=== PATIENT | male | born 1970 | race Hispanic/Latino ===

== ENCOUNTER 2022-10-04 17:58 | Emergency (ER) | payer BC ==
[~2022-10-04] VITALS: Ht 177.8 cm; Wt 97.5 kg
[2022-10-04 20:35] LABS: BASOPHILS % (AUTO) 0.2 % (0.0-5.0); EOSINOPHILS % (AUTO) 1.5 % (0.0-8.0); HEMATOCRIT 45.8 % (42-54); LYMPHOCYTES % (AUTO) 2.7 % (21.0-51.0); MEAN CORPUSCULAR HEMOGLOBIN 31.1 pg (27.0-33.0); MEAN CORPUSCULAR HGB CONC 33.8 g/dL (32.0-36.0); MEAN CORPUSCULAR VOLUME 91.8 fL (79-99); MONOCYTES % (AUTO) 1.9 % (3.0-13.0); NEUTROPHILS % (AUTO) 93.5 % (40.0-77.0); PLATELET COUNT (AUTO) 213 K/uL (130-400); RED BLOOD CELL COUNT(AUTO) 4.99 MIL/uL (4.50-6.20); RED CELL DISTRIBUTION WIDTH 12.4 % (11.0-15.5); WHITE BLOOD COUNT (AUTO) 12.6 K/uL (4.8-10.8)
[2022-10-04 20:37] LABS: APPEARANCE,URINE CLEAR (CLEAR); BILIRUBIN,URINE NEGATIVE (NEGATIVE); COLOR,URINE LIGHT-YELLOW (YELLOW); GLUCOSE, URINE (UA) NEGATIVE (NEGATIVE); KETONES,URINE NEGATIVE (NEGATIVE); LEUKOCYTE ESTERASE ,URINE NEGATIVE Leu/uL (NEGATIVE); NITRATE,URINE NEGATIVE (NEGATIVE); OCCULT BLOOD,URINE NEGATIVE (NEGATIVE); PH,URINE 5.5 (5.0-8.0); PROTEIN,URINE NEGATIVE (NEGATIVE); UROBILINOGEN,URINE 0.2 mg/dL (0.2-1.0)
[2022-10-04 20:38] LABS: MUCUS,URINE RARE LPF (None Seen); RBC,URINE 0-1 /HPF (0-1); WBC,URINE 0-1 /HPF (0-1)
[2022-10-04 20:50] LABS: CREATININE 1.2 mg/dL (0.5-1.5); POTASSIUM 4.1 mmol/L (3.5-5.1)
[2022-10-04 20:55] LABS: ALBUMIN 4.3 g/dL (3.5-5.0); TOTAL PROTEIN, SERUM 8.1 g/dL (6.0-8.3)
[2022-10-04] MEDS ORDERED: MORPHINE 4 MG SYG IVP ONE (21:00)
[2022-10-04] MEDS ORDERED: PANTOPRAZOLE 40 MG/VIAL IVP ONE (21:00)
[2022-10-04] MEDS ORDERED: 0.9%NACL 1000ML 1,000 ML IV ONE (21:00)
[2022-10-04] MEDS ORDERED: ONDANSETRON 4MG INJ IVP ONE (21:00)
[2022-10-04 21:35] VITALS: BP 140/68
[2022-10-04] MEDS ORDERED: LACT20PA6 PO (21:44)
[2022-10-04] MEDS ORDERED: FAMO20TA8 PO (21:44)
== END 2022-10-04 22:12 | disposition home or self-care (01) ==
LOC: EDH 17:58
DX: K52.9 Noninfective gastroenteritis and colitis, unspecified (principal); K59.00 Constipation, unspecified; F41.9 Anxiety disorder, unspecified; F32.A Depression, unspecified; E78.00 Pure hypercholesterolemia, unspecified; Z79.899 Other long term (current) drug therapy
CPT/HCPCS: 99284; 74176; 96374; 96375; 96361; 84484; 80053; 83690; 85025; 81001; 36415; 93005; J7030; J2405; J2270; C9113

== ENCOUNTER 2024-04-10 10:53 | Emergency (ER) | payer SELFPAY ==
[~2024-04-10] VITALS: Ht 180.3 cm; Wt 99.3 kg
[~2024-04-10 10:53] MED LIST: FAMO20TA8 PO; LACT20PA6 PO
[2024-04-10] MEDS ORDERED: CEPH500B PO (11:45)
[2024-04-10 11:52] VITALS: BP 138/88; PULSE 86; RESP 16; TEMP 98; O2SAT 98
== END 2024-04-10 11:53 | disposition home or self-care (01) ==
LOC: EDH 10:53
DX: S01.112A Laceration without foreign body of left eyelid and periocular area, initial encounter (principal); E03.9 Hypothyroidism, unspecified; E11.9 Type 2 diabetes mellitus without complications; E78.00 Pure hypercholesterolemia, unspecified; I10 Essential (primary) hypertension; W25.XXXA Contact with sharp glass, initial encounter; Y93.89 Activity, other specified; Y92.89 Other specified places as the place of occurrence of the external cause; Y99.8 Other external cause status
CPT/HCPCS: 12013

== ENCOUNTER 2024-04-17 14:43 | Emergency (ER) | payer SELFPAY ==
[~2024-04-17] VITALS: Ht 180.3 cm; Wt 99.8 kg
[~2024-04-17 14:43] MED LIST changes: +CEPH500B PO
[2024-04-17 15:10] VITALS: BP 130/80; PULSE 90; RESP 16; TEMP 98.1; O2SAT 99
== END 2024-04-17 15:16 | disposition home or self-care (01) ==
LOC: EDH 14:43
DX: S01.112D Laceration without foreign body of left eyelid and periocular area, subsequent encounter (principal); E03.9 Hypothyroidism, unspecified; E78.00 Pure hypercholesterolemia, unspecified; I10 Essential (primary) hypertension; Z48.02 Encounter for removal of sutures; Z79.899 Other long term (current) drug therapy; Z98.890 Other specified postprocedural states; X58.XXXD Exposure to other specified factors, subsequent encounter
CPT/HCPCS: 99282